=== PATIENT | female | born 1970 | race Caucasian/White ===

== ENCOUNTER 2019-09-08 18:13 | Emergency (ER) | payer MEDICAID ==
[~2019-09-08] VITALS: Ht 162.6 cm; Wt 93.0 kg
[2019-09-08 19:57] LABS: BASOPHILS # (AUTO) 0.03 x10^3/uL (0-0.1); BASOPHILS % (AUTO) 1 % (0-1); EOSINOPHILS # (AUTO) 0.28 x10^3/uL (0-0.4); EOSINOPHILS % (AUTO) 4 % (1-7); LYMPHOCYTES # (AUTO) 2.41 x10^3/uL (1-3.4); LYMPHOCYTES % (AUTO) 33 % (22-44); MD NO; MEAN CORPUSCULAR HEMOGLOBIN 31.2 pg (27.0-34.8); MEAN CORPUSCULAR HGB CONC 33.9 g/dL (32.4-35.8); MEAN CORPUSCULAR VOLUME 92.1 fL (80-100); MEAN PLATELET VOLUME 7.8 fL (7.4-10.4); MONOCYTES # (AUTO) 0.55 x10^3/uL (0.2-0.8); MONOCYTES % (AUTO) 8 % (2-9); NEUTROPHILS # (AUTO) 4.09 x10^3/uL (1.8-6.8); NEUTROPHILS % (AUTO) 56 % (42-75); PLATELET COUNT 415 x10^3/uL (130-400); RED BLOOD COUNT 4.76 x10^6/uL (3.82-5.3); RED CELL DISTRIBUTION WIDTH 15.3 % (9.6-15.2)
[2019-09-08] MEDS ORDERED: SODIUM CHLORIDE FLUSH 10ML SYR IVF ONE (20:00)
[2019-09-08 20:07] LABS: ALANINE AMINOTRANSFERASE 51 U/L (12-78); ALBUMIN 4.1 g/dL (3.4-5.0); ANION GAP 6 mmol/L (5-15); CALCIUM 8.8 mg/dL (8.5-10.1); CHLORIDE 107 mmol/L (98-107); CREATININE 0.84 mg/dL (0.55-1.02)
[2019-09-08 20:09] LABS: INTERNATIONAL NORMALIZED RATIO 2.77 (0.93-1.1); PROTHROMBIN TIME 29.7 Seconds (9.6-11.5)
[2019-09-08 20:12] LABS: ALKALINE PHOSPHATASE 124 U/L (45-117); BILIRUBIN,TOTAL 0.2 mg/dL (0.2-1.0); TOTAL PROTEIN 8.6 g/dL (6.4-8.2)
--- NOTE | 2019-09-08 20:28 | NUR ---
THIS IS A 48 YO FEMALE COMING IN FOR GLF 3 WEEKS AGO AND TODAY AT 1100 RELATED TO "FEELING OFF BALANCE". PATIENT HAS HX OF CHIARI MALFORMATION WITH TWO BRAIN SURGERIES, FREQUENT FEELING OF "BEING OFF BALANCE". PATIENT ALSO HAS HX OF FACTOR 5 LEIDEN, AFIB, VON [place] DISEASE, SZ, FIBROMYALGIA, AND STROKE X2, CURRENTLY TAKES WARFARIN. PATIENT C/O MIDLINE SPINAL PAIN DOWN BACK RADIATING UP NECK, WITH FEELINGS OF "SHARDS OF GLASS IN MY FEET". PAIN IS CONSTANT AND RATED 9/10. PATIENT WAS SEEN AT [facility] YESTERDAY FOR DIZZINESS AND SENT HOME WITH [facility]. PATIENT STATES "I TOOK ONE AND FELT SICK AND THREW UP AFTER AN HOUR, SO I THREW THEM AWAY". PATIENT MOVES ALL EXTREMITIES, EQUAL STRENGTH BILATERALLY. A&OX4, NAD AT THIS TIME. PATIENT TAKEN TO CT AT THIS TIME.
[2019-09-08] MEDS ORDERED: MORPHINE SULFATE 4 MG/ML, 1ML ONE (20:59)
[2019-09-08] MEDS ORDERED: ONDANSETRON 2MG/ML, 2ML ONE (20:59)
[2019-09-08] MEDS ORDERED: ONDANSETRON 2MG/ML, 2ML IVPush ONE (21:00)
[2019-09-08] MEDS ORDERED: MORPHINE SULFATE 4 MG/ML, 1ML IVPush PRN (21:00)
--- NOTE | 2019-09-08 21:09 | NUR ---
PIV PLACED, PATIENT MEDICATED PER EMAR, TOLERATED WELL. VSS, NAD AT THIS TIME, CALL LIGHT IN REACH. ALL MONITORING IN PLACE, SINUS ON ELECTION CLERK
[2019-09-08] MEDS ORDERED: LAMO100T63 PO (21:11)
[2019-09-08] MEDS ORDERED: WARF3TAB52 PO (21:11)
[2019-09-08] MEDS ORDERED: METO25TA35 PO (21:11)
[2019-09-08] MEDS ORDERED: AMIT50TA PO (21:12)
--- NOTE | 2019-09-08 21:50 | NUR ---
PATIENT BACK FROM IMAGING AT THIS TIME, ALL MONITORING BACK IN PLACE
[2019-09-08 21:58] VITALS: BP 117/71
--- NOTE | 2019-09-08 22:28 | NUR ---
PIV REMOVED, PATIENT ABLE TO DRESS SELF, CALLED SISTER FOR RIDE HOME. PATIENT WHEELED TO DISCHARGE.
== END 2019-09-08 22:46 | disposition home or self-care (01) ==
LOC: ED 22:38
DX: S39.012A Strain of muscle, fascia and tendon of lower back, initial encounter (principal); S29.012A Strain of muscle and tendon of back wall of thorax, initial encounter; G43.C0 Periodic headache syndromes in child or adult, not intractable; R42 Dizziness and giddiness; I48.91 Unspecified atrial fibrillation; G40.909 Epilepsy, unspecified, not intractable, without status epilepticus; W01.0XXA Fall on same level from slipping, tripping and stumbling without subsequent striking against object, initial encounter; Y93.89 Activity, other specified; Y92.89 Other specified places as the place of occurrence of the external cause; Y99.8 Other external cause status
CPT/HCPCS: 36415; 70450; 72072; 72110; 72125; 80053; 84703; 85025; 85610; 85730; 96374; 96375; 99285; J2270; J2405

== ENCOUNTER 2020-01-28 17:45 | Emergency (ER) | payer MEDICAID ==
[~2020-01-28] VITALS: Ht 165.1 cm; Wt 100.0 kg
[~2020-01-28 17:45] MED LIST: AMIT50TA PO; LAMO100T63 PO; METO25TA35 PO; WARF3TAB52 PO
[2020-01-28 17:47] VITALS: BP 127/78
[2020-01-28] MEDS ORDERED: PANTOPRAZOLE 40 MG IV IVPush SCH (18:30)
[2020-01-28] MEDS ORDERED: FAMOTIDINE 20 MG/2 ML IV ONE (18:30)
[2020-01-28] MEDS ORDERED: SODIUM CHLORIDE FLUSH 10ML SYR IVF ONE (18:30)
[2020-01-28] MEDS ORDERED: ONDANSETRON 2MG/ML, 2ML IVPush ONE (18:30)
[2020-01-28] MEDS ORDERED: MORPHINE SULFATE 4 MG/ML, 1ML ONE ×2 (18:39→19:40)
[2020-01-28] MEDS ORDERED: FAMOTIDINE 20 MG/2 ML ONE (18:39)
[2020-01-28] MEDS ORDERED: ONDANSETRON 2MG/ML, 2ML ONE (18:39)
[2020-01-28] MEDS ORDERED: PANTOPRAZOLE 40 MG IV ONE (18:39)
[2020-01-28] MEDS: MORPHINE SULFATE 4 MG/ML, 1ML IVPush PRN ×2 (18:42→19:42)
[2020-01-28 18:52] LABS: BASOPHILS # (AUTO) 0.04 x10^3/uL (0-0.1); BASOPHILS % (AUTO) 1 % (0-1); EOSINOPHILS # (AUTO) 0.14 x10^3/uL (0-0.4); EOSINOPHILS % (AUTO) 2 % (1-7); LYMPHOCYTES # (AUTO) 2.39 x10^3/uL (1-3.4); LYMPHOCYTES % (AUTO) 30 % (22-44); MD NO; MEAN CORPUSCULAR HEMOGLOBIN 31.5 pg (27.0-34.8); MEAN CORPUSCULAR HGB CONC 34.3 g/dL (32.4-35.8); MEAN CORPUSCULAR VOLUME 91.9 fL (80-100); MEAN PLATELET VOLUME 7.5 fL (7.4-10.4); MONOCYTES # (AUTO) 0.77 x10^3/uL (0.2-0.8); MONOCYTES % (AUTO) 10 % (2-9); NEUTROPHILS # (AUTO) 4.68 x10^3/uL (1.8-6.8); NEUTROPHILS % (AUTO) 58 % (42-75); PLATELET COUNT 492 x10^3/uL (130-400)
[2020-01-28 18:54] LABS: ALANINE AMINOTRANSFERASE 97 U/L (12-78); ALBUMIN 4.1 g/dL (3.4-5.0); ANION GAP 4 mmol/L (5-15); CALCIUM 9.7 mg/dL (8.5-10.1); CHLORIDE 106 mmol/L (98-107); CREATININE 1.06 mg/dL (0.55-1.02)
[2020-01-28 18:56] LABS: ALKALINE PHOSPHATASE 159 U/L (45-117); BILIRUBIN,TOTAL 0.3 mg/dL (0.2-1.0); TOTAL PROTEIN 8.3 g/dL (6.4-8.2)
--- NOTE | 2020-01-28 19:03 | NUR ---
PT TO CT AT THIS TIME.
--- NOTE | 2020-01-28 19:32 | NUR ---
PT UP TO RESTROOM TO TRY TO PROVIDE URINE SAMPLE. GAIT STRONG, INDEPENDENT.
--- NOTE | 2020-01-28 19:49 | NUR ---
URINE SAMPLE COLLECTED AND SENT. PT DENIES ANY FURTHER NEEDS AT THIS TIME. CALL LIGHT IN REACH.
[2020-01-28 20:07] LABS: MICROSCOPIC INDICATED
[2020-01-28] MEDS ORDERED: OMNIPAQUE 350 MG/ML, 100ML BOTTLE ONE (22:35)
== END 2020-01-28 20:55 | disposition home or self-care (01) ==
LOC: ED 18:03
DX: K26.7 Chronic duodenal ulcer without hemorrhage or perforation (principal); I48.91 Unspecified atrial fibrillation; Z90.89 Acquired absence of other organs; Z90.49 Acquired absence of other specified parts of digestive tract; Z90.710 Acquired absence of both cervix and uterus
CPT/HCPCS: 36415; 74177; 80053; 81001; 83690; 85025; 87086; 96374; 96375; 96376; 99285; C9113; J2270; J2405; J3490; Q9967

== ENCOUNTER 2020-01-30 09:57 | Inpatient (IN) | payer MEDICAID ==
[~2020-01-30] VITALS: Ht 165.1 cm; Wt 111.8 kg
[2020-01-30] MEDS ORDERED: ONDANSETRON 2MG/ML, 2ML ONE (10:23)
[2020-01-30] MEDS ORDERED: PLEASE ENTER HEIGHT AND WEIGHT MC SCH (10:30)
--- NOTE | 2020-01-30 10:34 | NUR ---
Bib by glenn from home for n/v/d x 4 days. Seen here 2 days ago for same. Unable to hold down zofran/phenergan po Complaining of RUQ pain Significant abd surgical hx vss. piv placed no covid sxs
--- NOTE | 2020-01-30 10:36 | NUR ---
Ecg at bedside (delayed by MD bailon)
[2020-01-30 10:46] LABS: BASOPHILS # (AUTO) 0.04 x10^3/uL (0-0.1); BASOPHILS % (AUTO) 0 % (0-1); EOSINOPHILS # (AUTO) 0.11 x10^3/uL (0-0.4); EOSINOPHILS % (AUTO) 1 % (1-7); LYMPHOCYTES # (AUTO) 1.83 x10^3/uL (1-3.4); LYMPHOCYTES % (AUTO) 18 % (22-44); MD NO; MEAN CORPUSCULAR HEMOGLOBIN 30.8 pg (27.0-34.8); MEAN CORPUSCULAR HGB CONC 33.1 g/dL (32.4-35.8); MEAN CORPUSCULAR VOLUME 93.2 fL (80-100); MEAN PLATELET VOLUME 7.4 fL (7.4-10.4); MONOCYTES # (AUTO) 0.74 x10^3/uL (0.2-0.8); MONOCYTES % (AUTO) 7 % (2-9); NEUTROPHILS # (AUTO) 7.28 x10^3/uL (1.8-6.8); NEUTROPHILS % (AUTO) 73 % (42-75); PLATELET COUNT 499 x10^3/uL (130-400); RED BLOOD COUNT 4.46 x10^6/uL (3.82-5.3); RED CELL DISTRIBUTION WIDTH 13.7 % (9.6-15.2)
[2020-01-30 10:54] LABS: ALANINE AMINOTRANSFERASE 74 U/L (12-78); ALBUMIN 4.2 g/dL (3.4-5.0); ANION GAP 6 mmol/L (5-15); CALCIUM 9.7 mg/dL (8.5-10.1); CHLORIDE 105 mmol/L (98-107); CREATININE 1.03 mg/dL (0.55-1.02)
[2020-01-30] MEDS ORDERED: MORPHINE SULFATE 4 MG/ML, 1ML ONE ×2 (10:55→13:34)
[2020-01-30] MEDS ORDERED: ONDANSETRON 2MG/ML, 2ML IVPush ONE (11:00)
[2020-01-30] MEDS ORDERED: SODIUM CHLORIDE 0.9% 1,000ML IVBOLUS ONE (11:00)
[2020-01-30 11:01] LABS: ALKALINE PHOSPHATASE 147 U/L (45-117); BILIRUBIN,TOTAL 0.3 mg/dL (0.2-1.0); TOTAL PROTEIN 8.8 g/dL (6.4-8.2)
[2020-01-30] MEDS: MORPHINE SULFATE 4 MG/ML, 1ML IVPush PRN ×3 (11:15→16:44)
[2020-01-30] MEDS ORDERED: POTASSIUM CHLORIDE 20 MEQ TAB.ER.PRT ONE ×2 (11:20→11:36)
[2020-01-30] MEDS ORDERED: MAALOX/HYOSCYAMINE/LIDOCAINE 45 ML BTL ONE (11:20)
[2020-01-30] MEDS ORDERED: PROMETHAZINE 25 MG/ML, 1ML ONE (11:20)
--- NOTE | 2020-01-30 11:28 | NUR ---
medicated per emar for ruq pain at 8//10m, as well as medication for continued nausea/hypokalemia/seizure prevention To radiology at 1128a
[2020-01-30] MEDS ORDERED: SODIUM CHLORIDE FLUSH 10ML SYR IVF ONE (11:30)
[2020-01-30] MEDS ORDERED: LAMOTRIGINE 100 MG TABLET PO ONE (11:30)
[2020-01-30] MEDS ORDERED: PROMETHAZINE 25 MG/ML, 1ML IM ONE (11:30)
[2020-01-30] MEDS ORDERED: MAALOX/HYOSCYAMINE/LIDOCAINE 45 ML BTL PO ONE (12:00)
[2020-01-30] MEDS ORDERED: POTASSIUM CHLORIDE 20 MEQ TAB.ER.PRT PO ONE (12:00)
--- NOTE | 2020-01-30 12:18 | NUR ---
QWith reassessment nausea improved entirely however, still with 6-7 ruq abd pain vss provider made aware Updated on estimated poc
[2020-01-30] MEDS ORDERED: PANTOPRAZOLE 40 MG IV ONE (12:54)
[2020-01-30] MEDS ORDERED: PANTOPRAZOLE 40 MG IV IVPush ONE (13:00)
[2020-01-30] MEDS ORDERED: HYDR50TA99 PO (13:19)
[2020-01-30] MEDS ORDERED: ENOX150S5 SQ (13:19)
[2020-01-30] MEDS ORDERED: BUSP10TA PO (13:19)
[2020-01-30] MEDS ORDERED: TRAM50TA2 PO (13:19)
[2020-01-30 14:57] VITALS: BP 99/68
[2020-01-30] MEDS ORDERED: LABETALOL 5MG/ML, 20ML IVPush PRN (15:30)
[2020-01-30] MEDS: Enoxaparin 1 mg/kg protocol SQ SCH (15:30)
[2020-01-30] MEDS ORDERED: hydrALAzine 20 MG/ML, 1ML IVPush PRN (15:30)
[2020-01-30] MEDS ORDERED: SODIUM CHLORIDE 0.9% 1,000 ML IV SCH (15:30)
[2020-01-30] MEDS: ENOXAPARIN 120MG/0.8ML SQ SCH (16:00)
[2020-01-30] MEDS: SODIUM CHLORIDE 0.9% 1,000 ML IV SCH (16:00)
[2020-01-30] MEDS: PROMETHAZINE 25 MG/ML, 1ML IM PRN (16:45)
[2020-01-30 17:15] VITALS: BP 114/70
[2020-01-30 19:28] LABS: MICROSCOPIC AUTO
[2020-01-30 20:00] VITALS: BP 129/84
[2020-01-30 20:03] VITALS: BP 121/83
[2020-01-30 20:06] VITALS: BP 146/95
[2020-01-30] MEDS: BUSPIRONE 10 MG TABLET PO SCH (20:22)
[2020-01-30] MEDS: OXYcodone/APAP 5/325MG TABLET PO PRN (20:22)
[2020-01-30] MEDS: PANTOPRAZOLE 40 MG IV IVPush SCH (20:22)
[2020-01-30] MEDS: ONDANSETRON 2MG/ML, 2ML IVPush PRN (20:22)
[2020-01-30] MEDS: LAMOTRIGINE 100 MG TABLET PO SCH (20:22)
[2020-01-31] VITALS (10 sets, daily range): BP systolic 104–136; BP diastolic 60–84
[2020-01-31] MEDS: PROMETHAZINE 25 MG/ML, 1ML IM PRN ×4 (00:39→18:48)
[2020-01-31] MEDS: MORPHINE SULFATE 4 MG/ML, 1ML IVPush PRN ×4 (00:40→21:06)
[2020-01-31] MEDS: Enoxaparin 1 mg/kg protocol SQ SCH ×2 (03:30→15:30)
[2020-01-31] MEDS: ENOXAPARIN 120MG/0.8ML SQ SCH ×2 (03:53→15:04)
[2020-01-31] MEDS: SODIUM CHLORIDE 0.9% 1,000 ML IV SCH ×3 (03:53→19:17)
[2020-01-31 06:03] LABS: ALBUMIN 3.2 g/dL (3.4-5.0); ANION GAP 6 mmol/L (5-15); BASOPHILS # (AUTO) 0.04 x10^3/uL (0-0.1); BASOPHILS % (AUTO) 1 % (0-1); CALCIUM 8.2 mg/dL (8.5-10.1); CHLORIDE 112 mmol/L (98-107); EOSINOPHILS # (AUTO) 0.31 x10^3/uL (0-0.4); EOSINOPHILS % (AUTO) 5 % (1-7); LYMPHOCYTES # (AUTO) 2.42 x10^3/uL (1-3.4); LYMPHOCYTES % (AUTO) 41 % (22-44); MD NO; MEAN CORPUSCULAR HEMOGLOBIN 30.7 pg (27.0-34.8); MEAN CORPUSCULAR HGB CONC 32.6 g/dL (32.4-35.8); MEAN CORPUSCULAR VOLUME 94.3 fL (80-100); MEAN PLATELET VOLUME 7.5 fL (7.4-10.4); MONOCYTES # (AUTO) 0.48 x10^3/uL (0.2-0.8); MONOCYTES % (AUTO) 8 % (2-9); NEUTROPHILS % (AUTO) 44 % (42-75); PLATELET COUNT 378 x10^3/uL (130-400)
[2020-01-31 06:14] LABS: ALANINE AMINOTRANSFERASE 52 U/L (12-78); ALKALINE PHOSPHATASE 110 U/L (45-117); BILIRUBIN,TOTAL 0.5 mg/dL (0.2-1.0); CREATININE 0.85 mg/dL (0.55-1.02); TOTAL PROTEIN 6.5 g/dL (6.4-8.2)
[2020-01-31] MEDS: BUSPIRONE 10 MG TABLET PO SCH ×2 (09:30→21:05)
[2020-01-31] MEDS: PANTOPRAZOLE 40 MG IV IVPush SCH ×2 (09:31→21:06)
[2020-01-31] MEDS: LAMOTRIGINE 100 MG TABLET PO SCH ×2 (09:31→21:05)
[2020-01-31] MEDS: CEFTRIAXONE PMX 1GM/50ML 50 ML IV SCH (09:31)
[2020-01-31] MEDS: METOPROLOL TARTRATE 50 MG TAB PO SCH (09:31)
[2020-01-31] MEDS: ACETAMINOPHEN 325 MG TABLET PO PRN (10:52)
[2020-01-31] MEDS: POTASSIUM CHLORIDE 20 MEQ in SODIUM CHLORIDE 0.9% 250 ML IV SCH (10:52)
[2020-01-31] MEDS: OXYcodone/APAP 5/325MG TABLET PO PRN (18:49)
[2020-01-31] MEDS: ONDANSETRON 2MG/ML, 2ML IVPush PRN (21:14)
[2020-02-01 03:03] VITALS: BP 104/69
[2020-02-01] MEDS: Enoxaparin 1 mg/kg protocol SQ SCH (03:30)
[2020-02-01] MEDS: MORPHINE SULFATE 4 MG/ML, 1ML IVPush PRN ×3 (05:15→21:05)
[2020-02-01] MEDS: PROMETHAZINE 25 MG/ML, 1ML IM PRN ×3 (05:15→20:44)
[2020-02-01] MEDS: ENOXAPARIN 120MG/0.8ML SQ SCH ×4 (05:15→19:31)
[2020-02-01 06:57] VITALS: BP 122/78
[2020-02-01 07:35] LABS: BASOPHILS # (AUTO) 0.03 x10^3/uL (0-0.1); BASOPHILS % (AUTO) 1 % (0-1); EOSINOPHILS # (AUTO) 0.34 x10^3/uL (0-0.4); EOSINOPHILS % (AUTO) 7 % (1-7); LYMPHOCYTES # (AUTO) 1.71 x10^3/uL (1-3.4); LYMPHOCYTES % (AUTO) 34 % (22-44); MD NO; MEAN CORPUSCULAR HEMOGLOBIN 30.8 pg (27.0-34.8); MEAN CORPUSCULAR VOLUME 93.4 fL (80-100); MEAN PLATELET VOLUME 7.1 fL (7.4-10.4); MONOCYTES # (AUTO) 0.41 x10^3/uL (0.2-0.8); MONOCYTES % (AUTO) 8 % (2-9); NEUTROPHILS # (AUTO) 2.48 x10^3/uL (1.8-6.8); NEUTROPHILS % (AUTO) 50 % (42-75); PLATELET COUNT 394 x10^3/uL (130-400); RED BLOOD COUNT 3.98 x10^6/uL (3.82-5.3); RED CELL DISTRIBUTION WIDTH 13.4 % (9.6-15.2)
[2020-02-01 07:46] LABS: ALANINE AMINOTRANSFERASE 54 U/L (12-78); ALBUMIN 3.3 g/dL (3.4-5.0); ANION GAP 8 mmol/L (5-15); CALCIUM 8.8 mg/dL (8.5-10.1); CHLORIDE 109 mmol/L (98-107); CREATININE 0.75 mg/dL (0.55-1.02)
[2020-02-01 07:48] LABS: ALKALINE PHOSPHATASE 113 U/L (45-117); BILIRUBIN,TOTAL 0.2 mg/dL (0.2-1.0); TOTAL PROTEIN 6.8 g/dL (6.4-8.2)
[2020-02-01] MEDS: CEFTRIAXONE PMX 1GM/50ML 50 ML IV SCH (09:30)
[2020-02-01] MEDS: METOPROLOL TARTRATE 50 MG TAB PO SCH (09:30)
[2020-02-01] MEDS: LAMOTRIGINE 100 MG TABLET PO SCH ×2 (09:30→20:28)
[2020-02-01] MEDS: PANTOPRAZOLE 40 MG IV IVPush SCH ×2 (09:31→20:28)
[2020-02-01] MEDS: BUSPIRONE 10 MG TABLET PO SCH ×2 (09:31→20:28)
[2020-02-01] MEDS: ONDANSETRON 2MG/ML, 2ML IVPush PRN (09:35)
[2020-02-01 09:38] VITALS: BP 109/74
[2020-02-01] MEDS: OXYcodone/APAP 5/325MG TABLET PO PRN ×2 (09:56→16:28)
[2020-02-01] MEDS: POTASSIUM CHLORIDE 20 MEQ in SODIUM CHLORIDE 0.9% 250 ML IV SCH (11:00)
[2020-02-01 13:00] VITALS: BP 119/65
[2020-02-01] MEDS: ACETAMINOPHEN 325 MG TABLET PO PRN (14:50)
[2020-02-01] MEDS: SUCRALFATE 1 GM/10 ML UDC PO SCH ×2 (16:29→20:28)
[2020-02-01 20:00] VITALS: BP 101/66
[2020-02-01] MEDS: SULFAMETH./TRIMETHOPRIM DS 800MG/160MG TABLET PO SCH (20:28)
[2020-02-02 02:00] VITALS: BP 111/70
[2020-02-02] MEDS: SUCRALFATE 1 GM/10 ML UDC PO SCH ×4 (06:02→20:50)
[2020-02-02] MEDS: PROMETHAZINE 25 MG/ML, 1ML IM PRN ×3 (06:27→22:10)
[2020-02-02] MEDS: MORPHINE SULFATE 4 MG/ML, 1ML IVPush PRN ×3 (06:28→22:11)
[2020-02-02] MEDS ORDERED: CHLORHEXIDINE 15 ML UDC ONE (07:22)
[2020-02-02] MEDS ORDERED: PROPOFOL 10 MG/ML, 20ML ONE (08:28)
[2020-02-02] MEDS ORDERED: FENTANYL PF 100 MCG/2ML ONE (08:39)
[2020-02-02] MEDS: LAMOTRIGINE 100 MG TABLET PO SCH ×2 (10:06→20:50)
[2020-02-02] MEDS: SULFAMETH./TRIMETHOPRIM DS 800MG/160MG TABLET PO SCH ×2 (10:06→20:50)
[2020-02-02] MEDS: POTASSIUM CHLORIDE 20 MEQ in SODIUM CHLORIDE 0.9% 250 ML IV SCH (10:06)
[2020-02-02] MEDS: METOPROLOL TARTRATE 50 MG TAB PO SCH (10:07)
[2020-02-02] MEDS: BUSPIRONE 10 MG TABLET PO SCH ×2 (10:07→20:50)
[2020-02-02 10:11] VITALS: BP 103/71
[2020-02-02] MEDS: ACETAMINOPHEN 325 MG TABLET PO PRN ×2 (10:32→17:43)
[2020-02-02] MEDS: ONDANSETRON 2MG/ML, 2ML IVPush PRN (12:28)
[2020-02-02] MEDS: OXYcodone/APAP 5/325MG TABLET PO PRN ×2 (12:28→20:51)
[2020-02-02 12:50] VITALS: BP 91/58
[2020-02-02 13:13] VITALS: BP 88/60
[2020-02-02] MEDS: ENOXAPARIN 120MG/0.8ML SQ SCH (15:20)
[2020-02-02 19:28] VITALS: BP 90/40
[2020-02-02 22:09] VITALS: BP 102/66
[2020-02-03 00:58] VITALS: BP 117/82
[2020-02-03] MEDS: ENOXAPARIN 120MG/0.8ML SQ SCH ×2 (04:21→15:48)
[2020-02-03] MEDS: SUCRALFATE 1 GM/10 ML UDC PO SCH ×4 (06:12→21:51)
[2020-02-03 09:10] VITALS: BP 109/68
[2020-02-03] MEDS: LAMOTRIGINE 100 MG TABLET PO SCH ×2 (09:12→19:58)
[2020-02-03] MEDS: OXYcodone/APAP 5/325MG TABLET PO PRN ×2 (09:12→15:48)
[2020-02-03] MEDS: PANTOPRAZOLE 40MG TABLET PO SCH ×2 (09:12→19:58)
[2020-02-03] MEDS: METOPROLOL TARTRATE 50 MG TAB PO SCH (09:12)
[2020-02-03] MEDS: BUSPIRONE 10 MG TABLET PO SCH ×2 (09:12→19:58)
[2020-02-03] MEDS: SULFAMETH./TRIMETHOPRIM DS 800MG/160MG TABLET PO SCH ×2 (09:12→19:58)
[2020-02-03] MEDS: PROMETHAZINE 25 MG/ML, 1ML IM PRN ×2 (09:13→15:47)
[2020-02-03] MEDS: POTASSIUM CHLORIDE 20 MEQ in SODIUM CHLORIDE 0.9% 250 ML IV SCH (11:40)
[2020-02-03] MEDS: ONDANSETRON 2MG/ML, 2ML IVPush PRN ×2 (11:48→19:58)
[2020-02-03] MEDS: MORPHINE SULFATE 4 MG/ML, 1ML IVPush PRN ×2 (11:48→19:58)
[2020-02-03] MEDS ORDERED: TIZANIDINE 4MG TABLET PO PRN (12:00)
[2020-02-03] MEDS ORDERED: OMNIPAQUE 350 MG/ML, 100ML BOTTLE ONE (15:18)
[2020-02-03 17:15] VITALS: BP 100/61
[2020-02-03 19:04] VITALS: BP 95/61
[2020-02-04] VITALS (9 sets, daily range): BP systolic 63–122; BP diastolic 39–74
[2020-02-04] MEDS ORDERED: SODIUM CHLORIDE 0.9% 1,000ML IVBOLUS ONE ×2 (01:30→02:30)
[2020-02-04] MEDS: OXYcodone/APAP 5/325MG TABLET PO PRN ×5 (03:32→22:12)
[2020-02-04] MEDS: ONDANSETRON 2MG/ML, 2ML IVPush PRN ×3 (03:32→22:11)
[2020-02-04] MEDS: ENOXAPARIN 120MG/0.8ML SQ SCH ×2 (03:32→16:55)
[2020-02-04] MEDS: SUCRALFATE 1 GM/10 ML UDC PO SCH ×4 (06:30→21:38)
[2020-02-04] MEDS: LAMOTRIGINE 100 MG TABLET PO SCH ×2 (08:26→21:38)
[2020-02-04] MEDS: SULFAMETH./TRIMETHOPRIM DS 800MG/160MG TABLET PO SCH ×2 (08:26→21:38)
[2020-02-04] MEDS: PROMETHAZINE 25 MG/ML, 1ML IM PRN (08:26)
[2020-02-04] MEDS: BUSPIRONE 10 MG TABLET PO SCH ×2 (08:26→21:38)
[2020-02-04] MEDS: PANTOPRAZOLE 40MG TABLET PO SCH ×2 (08:27→21:38)
[2020-02-04] MEDS: POTASSIUM CHLORIDE 20 MEQ in SODIUM CHLORIDE 0.9% 250 ML IV SCH (08:29)
[2020-02-04] MEDS: METOPROLOL TARTRATE 50 MG TAB PO SCH (09:13)
[2020-02-04 10:14] LABS: MEAN CORPUSCULAR HEMOGLOBIN 31.3 pg (27.0-34.8); MEAN CORPUSCULAR HGB CONC 33.6 g/dL (32.4-35.8); MEAN CORPUSCULAR VOLUME 93.2 fL (80-100); MEAN PLATELET VOLUME 7.6 fL (7.4-10.4); PLATELET COUNT 409 x10^3/uL (130-400); RED BLOOD COUNT 4.08 x10^6/uL (3.82-5.3); RED CELL DISTRIBUTION WIDTH 13.6 % (9.6-15.2)
[2020-02-04 10:23] LABS: ALANINE AMINOTRANSFERASE 99 U/L (12-78); ALBUMIN 3.6 g/dL (3.4-5.0); ANION GAP 6 mmol/L (5-15); CALCIUM 8.9 mg/dL (8.5-10.1); CHLORIDE 110 mmol/L (98-107); CREATININE 0.92 mg/dL (0.55-1.02)
[2020-02-04 10:26] LABS: ALKALINE PHOSPHATASE 132 U/L (45-117); BILIRUBIN,TOTAL 0.2 mg/dL (0.2-1.0); TOTAL PROTEIN 7.3 g/dL (6.4-8.2)
[2020-02-04 10:37] LABS: BASOPHILS # (AUTO) 0.04 x10^3/uL (0-0.1); BASOPHILS % (AUTO) 1 % (0-1); EOSINOPHILS # (AUTO) 0.31 x10^3/uL (0-0.4); EOSINOPHILS % (AUTO) 5 % (1-7); LYMPHOCYTES # (AUTO) 1.82 x10^3/uL (1-3.4); LYMPHOCYTES % (AUTO) 31 % (22-44); MD SCAN; MONOCYTES % (AUTO) 9 % (2-9); NEUTROPHILS # (AUTO) 3.18 x10^3/uL (1.8-6.8); NEUTROPHILS % (AUTO) 54 % (42-75)
[2020-02-04] MEDS ORDERED: DICYCLOMINE 10 MG CAPSULE PO SCH (12:30)
[2020-02-04] MEDS: DULOXETINE 30 MG CAPSULE.DR PO SCH (13:04)
[2020-02-04] MEDS: DICYCLOMINE 20 MG TABLET PO SCH ×3 (13:04→21:38)
[2020-02-04] MEDS ORDERED: SODIUM CHLORIDE 0.9% 500 ML IV SCH (14:00)
[2020-02-04] MEDS: SODIUM CHLORIDE 0.9% 1,000 ML IV SCH ×2 (16:57→22:30)
[2020-02-04] MEDS: LIDODERM 5% PATCH TD SCH (16:57)
[2020-02-05 01:06] VITALS: BP 106/73
[2020-02-05] MEDS: PROMETHAZINE 25 MG/ML, 1ML IM PRN ×2 (01:17→20:37)
[2020-02-05] MEDS: ENOXAPARIN 120MG/0.8ML SQ SCH ×2 (05:06→16:36)
[2020-02-05] MEDS: SODIUM CHLORIDE 0.9% 1,000 ML IV SCH ×2 (06:48→14:36)
[2020-02-05] MEDS: SUCRALFATE 1 GM/10 ML UDC PO SCH ×4 (06:48→20:26)
[2020-02-05] MEDS: DICYCLOMINE 20 MG TABLET PO SCH ×4 (06:48→20:26)
[2020-02-05 07:07] VITALS: BP 109/75
[2020-02-05 07:41] LABS: BASOPHILS # (AUTO) 0.03 x10^3/uL (0-0.1); BASOPHILS % (AUTO) 1 % (0-1); EOSINOPHILS # (AUTO) 0.34 x10^3/uL (0-0.4); EOSINOPHILS % (AUTO) 7 % (1-7); LYMPHOCYTES # (AUTO) 1.79 x10^3/uL (1-3.4); LYMPHOCYTES % (AUTO) 36 % (22-44); MD NO; MEAN CORPUSCULAR HEMOGLOBIN 30.5 pg (27.0-34.8); MEAN CORPUSCULAR HGB CONC 32.6 g/dL (32.4-35.8); MEAN CORPUSCULAR VOLUME 93.7 fL (80-100); MEAN PLATELET VOLUME 7.4 fL (7.4-10.4); MONOCYTES # (AUTO) 0.45 x10^3/uL (0.2-0.8); MONOCYTES % (AUTO) 9 % (2-9); NEUTROPHILS # (AUTO) 2.38 x10^3/uL (1.8-6.8); NEUTROPHILS % (AUTO) 48 % (42-75); PLATELET COUNT 412 x10^3/uL (130-400); RED BLOOD COUNT 4.12 x10^6/uL (3.82-5.3); RED CELL DISTRIBUTION WIDTH 13.1 % (9.6-15.2)
[2020-02-05 07:48] LABS: ALANINE AMINOTRANSFERASE 86 U/L (12-78); ALBUMIN 3.4 g/dL (3.4-5.0); ANION GAP 3 mmol/L (5-15); CALCIUM 9.1 mg/dL (8.5-10.1); CHLORIDE 111 mmol/L (98-107); CREATININE 0.84 mg/dL (0.55-1.02)
[2020-02-05 07:50] LABS: ALKALINE PHOSPHATASE 129 U/L (45-117); BILIRUBIN,TOTAL 0.2 mg/dL (0.2-1.0); TOTAL PROTEIN 6.9 g/dL (6.4-8.2)
[2020-02-05] MEDS ORDERED: TIZANIDINE 4MG TABLET PO PRN (09:00)
[2020-02-05] MEDS: LAMOTRIGINE 100 MG TABLET PO SCH ×2 (09:05→20:27)
[2020-02-05] MEDS: BUSPIRONE 10 MG TABLET PO SCH ×2 (09:05→20:27)
[2020-02-05] MEDS: OXYcodone/APAP 5/325MG TABLET PO PRN ×3 (09:05→20:27)
[2020-02-05] MEDS: METOPROLOL TARTRATE 50 MG TAB PO SCH (09:05)
[2020-02-05] MEDS: PANTOPRAZOLE 40MG TABLET PO SCH ×2 (09:05→20:27)
[2020-02-05] MEDS: SULFAMETH./TRIMETHOPRIM DS 800MG/160MG TABLET PO SCH ×2 (09:05→20:27)
[2020-02-05] MEDS: DULOXETINE 30 MG CAPSULE.DR PO SCH (09:06)
[2020-02-05] MEDS: ONDANSETRON 2MG/ML, 2ML IVPush PRN ×2 (09:06→14:47)
[2020-02-05] MEDS ORDERED: OMNIPAQUE 350 MG/ML, 100ML BOTTLE ONE (12:04)
[2020-02-05 12:40] VITALS: BP 91/61
[2020-02-05] MEDS ORDERED: LORazepam 2 MG/ML, 1ML IVPush ONE (15:00)
[2020-02-05] MEDS: LIDODERM 5% PATCH TD SCH (16:36)
[2020-02-05 20:31] VITALS: BP 107/72
[2020-02-06] MEDS: SODIUM CHLORIDE 0.9% 1,000 ML IV SCH (02:03)
[2020-02-06 02:04] VITALS: BP 97/63
[2020-02-06] MEDS: DICYCLOMINE 20 MG TABLET PO SCH ×2 (05:28→12:52)
[2020-02-06] MEDS: ENOXAPARIN 120MG/0.8ML SQ SCH (05:28)
[2020-02-06 06:07] VITALS: BP 97/66
[2020-02-06 06:43] LABS: ALBUMIN 3.4 g/dL (3.4-5.0); ANION GAP 6 mmol/L (5-15); CALCIUM 9.1 mg/dL (8.5-10.1); CHLORIDE 109 mmol/L (98-107)
[2020-02-06 06:47] LABS: ALANINE AMINOTRANSFERASE 82 U/L (12-78); ALKALINE PHOSPHATASE 139 U/L (45-117); BILIRUBIN,TOTAL 0.2 mg/dL (0.2-1.0); CREATININE 0.93 mg/dL (0.55-1.02)
[2020-02-06] MEDS: BUSPIRONE 10 MG TABLET PO SCH (10:01)
[2020-02-06] MEDS: SUCRALFATE 1 GM/10 ML UDC PO SCH ×2 (10:01→12:52)
[2020-02-06] MEDS: SULFAMETH./TRIMETHOPRIM DS 800MG/160MG TABLET PO SCH (10:02)
[2020-02-06] MEDS: DULOXETINE 30 MG CAPSULE.DR PO SCH (10:02)
[2020-02-06] MEDS: LAMOTRIGINE 100 MG TABLET PO SCH (10:02)
[2020-02-06] MEDS: PANTOPRAZOLE 40MG TABLET PO SCH (10:02)
[2020-02-06] MEDS: ONDANSETRON 2MG/ML, 2ML IVPush PRN (10:24)
[2020-02-06] MEDS: OXYcodone/APAP 5/325MG TABLET PO PRN ×2 (10:25→14:52)
[2020-02-06] MEDS ORDERED: TIZA4TAB2 PO (12:24)
[2020-02-06] MEDS ORDERED: PANT40TA5 PO (12:24)
[2020-02-06] MEDS ORDERED: DICY20TA3 PO (12:24)
[2020-02-06] MEDS ORDERED: LIDO700A20 TD (12:24)
[2020-02-06] MEDS ORDERED: Sulfameth./Trimethoprim Ds PO ×2 (12:24→13:05)
[2020-02-06] MEDS ORDERED: SUCR1ORA5 PO (12:24)
[2020-02-06] MEDS ORDERED: DULO30CA2 PO (12:24)
[2020-02-06] MEDS ORDERED: ENOX120S4 SQ (12:24)
[2020-02-06 13:03] VITALS: BP 95/64
[2020-02-06] MEDS: PROMETHAZINE 25 MG/ML, 1ML IM PRN (14:54)
== END 2020-02-06 16:20 | disposition home or self-care (01) | DRG 241 ==
LOC: ED 10:37 → 3N 12:42 → 4EST 17:05
PROVIDERS: ADMIT Hospitalist; ATTEND Internal Medicine
PROC: 0DJ08ZZ Inspection of Upper Intestinal Tract, Via Natural or Artificial Opening Endoscopic (ICD-10-PCS; principal; 2020-02-02 07:30)
DX: K26.9 Duodenal ulcer, unspecified as acute or chronic, without hemorrhage or perforation (principal); K29.00 Acute gastritis without bleeding; R56.9 Unspecified convulsions; M79.7 Fibromyalgia; D68.51 Activated protein C resistance; N17.0 Acute kidney failure with tubular necrosis; E87.6 Hypokalemia; D47.3 Essential (hemorrhagic) thrombocythemia; E66.01 Morbid (severe) obesity due to excess calories; N12 Tubulo-interstitial nephritis, not specified as acute or chronic; E86.0 Dehydration; I48.91 Unspecified atrial fibrillation; Z87.11 Personal history of peptic ulcer disease; Z86.718 Personal history of other venous thrombosis and embolism; Z88.5 Allergy status to narcotic agent; Z88.8 Allergy status to other drugs, medicaments and biological substances; Z90.710 Acquired absence of both cervix and uterus; Z90.49 Acquired absence of other specified parts of digestive tract; Z88.7 Allergy status to serum and vaccine; Z79.899 Other long term (current) drug therapy; Z79.01 Long term (current) use of anticoagulants; Z86.73 Personal history of transient ischemic attack (TIA), and cerebral infarction without residual deficits; Z87.440 Personal history of urinary (tract) infections
CPT/HCPCS: 36415; 74022; 74174; 74177; 74181; 78226; 80053; 81001; 82533; 83605; 83690; 83735; 84145; 85025; 87040; 87077; 87086; 87186; 87635; 88305; 93005; 93306; 93880; 96361; 96372; 96374; G0378; J0696; J1650; J2405; J2550; J2704; J3010; J3480; Q9967; A9537; C9113; C9898; J2060; J2270; J7030; J7040; J7050

== ENCOUNTER 2020-03-17 16:38 | Emergency (ER) | payer MEDICAID ==
[~2020-03-17] VITALS: Ht 165.1 cm; Wt 107.0 kg
[~2020-03-17 16:38] MED LIST changes: +BUSP10TA PO; +DICY20TA3 PO; +DULO30CA2 PO; +ENOX120S4 SQ; +ENOX150S5 SQ; +HYDR50TA99 PO; +LIDO700A20 TD; +PANT40TA5 PO; +SUCR1ORA5 PO; +Sulfameth./Trimethoprim Ds PO; +TIZA4TAB2 PO; +TRAM50TA2 PO
--- NOTE | 2020-03-17 17:08 | NUR ---
first contact with pt. Pt here for bilateral leg swelling x 4 days. Pt reports she feels like she is going to explode. Pt denies CHF but has AFIB. Pt has factor 5 liden and has had 8 blood clots. pt's aox4. resps even and unlabored. pt denies any other sx. bp/spo2 monitors in place. call light within reach. 2l oxy placed by nc d/t low spo2. spow is avobe 90% at this time.
--- NOTE | 2020-03-17 17:33 | NUR ---
edmd at bedside at this time.
--- NOTE | 2020-03-17 17:45 | NUR ---
lab at bedside. urine cup given. pt aware of ua.
--- NOTE | 2020-03-17 17:51 | NUR ---
xray in room
[2020-03-17 17:54] VITALS: BP 119/65
[2020-03-17 17:57] LABS: BASOPHILS # (AUTO) 0.06 x10^3/uL (0-0.1); BASOPHILS % (AUTO) 1 % (0-1); EOSINOPHILS # (AUTO) 0.69 x10^3/uL (0-0.4); EOSINOPHILS % (AUTO) 11 % (1-7); LYMPHOCYTES # (AUTO) 1.86 x10^3/uL (1-3.4); LYMPHOCYTES % (AUTO) 29 % (22-44); MD NO; MEAN CORPUSCULAR HEMOGLOBIN 30.5 pg (27.0-34.8); MEAN CORPUSCULAR HGB CONC 33.3 g/dL (32.4-35.8); MEAN CORPUSCULAR VOLUME 91.5 fL (80-100); MEAN PLATELET VOLUME 7.2 fL (7.4-10.4); MONOCYTES # (AUTO) 0.81 x10^3/uL (0.2-0.8); MONOCYTES % (AUTO) 12 % (2-9); NEUTROPHILS # (AUTO) 3.09 x10^3/uL (1.8-6.8); NEUTROPHILS % (AUTO) 47 % (42-75); PLATELET COUNT 364 x10^3/uL (130-400); RED BLOOD COUNT 3.78 x10^6/uL (3.82-5.3); RED CELL DISTRIBUTION WIDTH 13.7 % (9.6-15.2)
--- NOTE | 2020-03-17 18:06 | NUR ---
pt amb to br and back to room with steady gait. pt provided urine sample. urine collected and ua sent.
[2020-03-17 18:09] LABS: ALANINE AMINOTRANSFERASE 169 U/L (12-78); ALBUMIN 3.4 g/dL (3.4-5.0); ANION GAP 8 mmol/L (5-15); CALCIUM 8.9 mg/dL (8.5-10.1); CHLORIDE 103 mmol/L (98-107); CREATININE 0.82 mg/dL (0.55-1.02)
[2020-03-17 18:13] LABS: ALKALINE PHOSPHATASE 197 U/L (45-117); BILIRUBIN,TOTAL 0.4 mg/dL (0.2-1.0); TOTAL PROTEIN 7.3 g/dL (6.4-8.2)
[2020-03-17 18:14] LABS: MICROSCOPIC NOT IND
--- NOTE | 2020-03-17 19:02 | NUR ---
REPORT GIVEN TO VALENTINA KUHN.
--- NOTE | 2020-03-17 19:09 | NUR ---
REPORT RECEIVED FROM BAM WASHINGTON. ASSUMED CARE OF PT. PT RESTING ON GURNEY IN NAD. REGISTRATION AT BEDSIDE GETTING PAPERWORK SIGNED. WATER PROVIDED. AWAITING DISCHARGE PAPERWORK AT THIS TIME.
--- NOTE | 2020-03-17 19:30 | NUR ---
Patient/Caregiver given discharge instructions and they have confirmed that they understand the instructions. Patient ambulatory with steady gait.
== END 2020-03-17 19:32 | disposition home or self-care (01) ==
LOC: ED 18:36
DX: I87.2 Venous insufficiency (chronic) (peripheral) (principal); R60.0 Localized edema; R94.5 Abnormal results of liver function studies; R00.0 Tachycardia, unspecified; R94.31 Abnormal electrocardiogram [ECG] [EKG]; I48.91 Unspecified atrial fibrillation; M79.7 Fibromyalgia; Z90.49 Acquired absence of other specified parts of digestive tract; Z90.710 Acquired absence of both cervix and uterus
CPT/HCPCS: 36415; 71045; 80053; 81003; 83880; 85025; 93005; 93970; 99285